=== PATIENT | female | born 1985 | race African-American/Black ===

== ENCOUNTER 2019-02-02 10:51 | Inpatient (IN) | payer OTHER, SELFPAY ==
--- NOTE | 2019-02-02 | PATH_ITS ---
[facility] Accession Number: [id number] . 01 Material submitted: . BILATERAL TUBAL SEGMENTS . 02 Diagnosis: Segments of Bilateral Fallopian Tubes (Sterilization Procedure): No significant pathologic change. V/02/04/2019 . 02 Electronically signed: . Anderson Long MD, Pathologist NPI- [id number] . 01 Gross description: . Received one formalin-filled container labeled with the patient's name and labeled bilateral tubes. The specimen consists of two pink-robertson non-fimbriated cylindrical shaped portions of tissue. The first measures 0.9 x 0.5 x 0.5 cm. The specimen is inked blue, trisected and entirely submitted in cassette A1. The second piece measures 0.9 x 0.5 x 0.5 cm. Inked blue, trisected and entirely submitted in cassette A2. ([facility] [place] [facility]:[id number]) /[facility] . 02 Pathologist provided ICD-10: Z30.2 . 02 CPT . 426143 Performed at: 01 [facility] [address] [place] [address], [place], [place] [id number] MD Derian Perez MD Phone: [phone] Performed at: 02 [facility] [address] [place], [place] [id number] MD Isha Chery MD Phone: [phone]
[2019-02-02 12:15] LABS: Add Manual Diff / Slide Review NO; Basophils Absolute Auto 0 /uL (0-100); Basophils Percent Auto 0.3 % (0-2); Eosinophils Absolute Auto 100 /uL (0-450); Eosinophils Percent Auto 0.8 % (2-4); Hematocrit 38.5 % (36-46); Lymphocytes Absolute Auto 1000 /uL (1100-4500); Lymphocytes Percent Auto 12.1 % (25-40); Mean Corpuscular HGB Conc 33.8 % (30-36); Mean Corpuscular Hemoglobin 29.2 PG (26-34); Mean Corpuscular Volume 86.3 fL (80-100); Monocytes Absolute Auto 600 /uL (0-900); Monocytes Percent Auto 7.3 % (3-14); Neutrophils Absolute Auto 6900 /uL (1500-7000); Neutrophils Percent Auto 79.5 % (50-75); Platelet Count 148 X10^3/uL (150-400); Red Blood Cell Count 4.46 X10^6/uL (4.0-5.2); Red Cell Distribution Width 14.6 % (11.6-14.8); White Blood Cell Count 8.6 X10^3/uL (4.5-11.0)
[2019-02-02] MEDS: LACTATED RINGERS 1,000 ML 999 ML IV ×2 (12:18→12:42)
[2019-02-02 12:33] VITALS: BP 124/84
[2019-02-02] MEDS: CEFAZOLIN 2 GM/100 ML FROZ.PIGGY IV (12:55)
--- NOTE | 2019-02-02 13:32 | SUR.OPER ---
Supine on Padded OR bed, head on pillow, safety belt at thigh, arms secured on padded arm boards at <90 degrees abduction. Bump under right buttock. Legs uncrossed with pillow under knees, gel pad to heels, tape over blanket to lower legs.
[2019-02-02 14:24] VITALS: BP 108/55; PULSE 81; RESP 12; TEMP 36.2; O2SAT 99
[2019-02-02 14:30] VITALS: BP 107/64; PULSE 76; RESP 14
[2019-02-02 14:34] VITALS: BP 100/55; PULSE 79; RESP 13; O2SAT 99
[2019-02-02 14:40] VITALS: BP 114/71; PULSE 82; RESP 12; O2SAT 100
[2019-02-02 14:44] VITALS: BP 111/74; PULSE 86; RESP 12; O2SAT 100
--- NOTE | 2019-02-02 14:46 | SUR.PHASEI ---
Report called to
--- NOTE | 2019-02-02 15:29 | SUR.PHASEI ---
Pt transferred to the center. Report to [place]. VS stable. Fundus at the U. Small to moderate amt of bleeding to oli-pad. Scant shadow drainage to [place]. Spinal at t8. IV saline locked.
[2019-02-02] MEDS: LACTATED RINGERS 1,000 ML 100 ML IV (15:30)
[2019-02-02] MEDS: OXYCODONE/ACETAMINOPHEN 5/325 TABLET 2 TAB PO (15:42)
[2019-02-02] MEDS: ONDANSETRON 4 MG/2 ML INJ IV (18:56)
[2019-02-02] MEDS: KETOROLAC 30 MG/ML VIAL IV (20:45)
[2019-02-03] MEDS: LACTATED RINGERS 1,000 ML 100 ML IV (01:41)
[2019-02-03] MEDS: KETOROLAC 30 MG/ML VIAL IV ×2 (03:00→09:03)
[2019-02-03 06:47] LABS: Add Manual Diff / Slide Review NO; Basophils Absolute Auto 0 /uL (0-100); Basophils Percent Auto 0.2 % (0-2); Eosinophils Absolute Auto 100 /uL (0-450); Eosinophils Percent Auto 1.1 % (2-4); Hematocrit 27.7 % (36-46); Hemoglobin 9.4 g/dL (12.0-16.0); Lymphocytes Absolute Auto 800 /uL (1100-4500); Lymphocytes Percent Auto 9.1 % (25-40); Mean Corpuscular HGB Conc 33.9 % (30-36); Mean Corpuscular Hemoglobin 29.5 PG (26-34); Mean Corpuscular Volume 87.1 fL (80-100); Monocytes Absolute Auto 900 /uL (0-900); Monocytes Percent Auto 10.5 % (3-14); Neutrophils Absolute Auto 6900 /uL (1500-7000); Neutrophils Percent Auto 79.1 % (50-75); Platelet Count 87 X10^3/uL (150-400); Red Blood Cell Count 3.18 X10^6/uL (4.0-5.2); Red Cell Distribution Width 14.8 % (11.6-14.8); White Blood Cell Count 8.7 X10^3/uL (4.5-11.0)
[2019-02-03] MEDS: PRENATAL VIT,CALC/IRON/FOLIC 1 TABLET 1 TAB PO (08:54)
[2019-02-03] MEDS: DOCUSATE 250 MG CAPSULE PO (08:54)
--- NOTE | 2019-02-03 12:45 | PM.PREOP ---
Pre-operative Note Interval Note History & Physical reviewed/Exam performed by Physician: Yes Changes to H&P: No
--- NOTE | 2019-02-03 12:52 | P.OP_ITS ---
Operative Date/Time/Diagnoses Date of procedure: 02/02/19 Time of procedure: 14:00 Pre-op diagnosis: Intrauterine at 39-,4/7 weeks gestation Previous section x2 Desires permanent sterilization Post-op diagnosis: same Procedure: Procedures Operation Date: 02/02/19 13:00 Actual Procedures Side Surgeon p Section with Bilateral Tubal Ligation Dayami Schmidt MD Indications: Intrauterine at 39-,4/7 weeks gestation Previous section x2 Desires permanent sterilization Surgeon: Dayami Schmidt Marketing Communications Specialist: Leo Kwong Anesthesia Type: Spinal Operative Notes Findings: Live female in the [facility] presentation Normal uterus, tubes, and ovaries Right paratubal cyst Closure Type: primary Specimen(s): left tube (Segment), right tube (Segment) and other (Placenta, cord bloods) Applied: catheter Estimated blood loss (mL): 500 Blood products transfused: none Procedure in detail: The patient was taken to the operating room where she was placed in the seated position. Spinal anesthesia with Duramorph was administered. The patient was then placed in the dorsal supine position with a leftward tilt. She was prepped and draped in the usual sterile fashion. A timeout was performed. After spinal analgesia was found to be adequate, the previous Pfannenstiel skin incisions were excised using an elliptical incision. The incision was then carried through to the underlying fascia. The fascia was nicked in the midline, and the incision extended bilaterally with the Stoddard scissors. The superior aspect of the fascial incision was grasped with a Fred clamps, elevated, and the underlying rectus muscles dissected off sharply and bluntly. Attention was then turned to the inferior aspect of this incision which in a similar fashion was grasped with a Fred clamps, elevated, and the underlying rectus muscles dissected off sharply and bluntly. The rectus muscles were in the midline. The peritoneum was identified, grasped between 2 hemostats, and entered sharply with the Metzenbaum scissors. This incision was extended superiorly and inferiorly with good visualization of the bladder. The bladder blade was inserted. The vesicouterine peritoneum was identified, grasped with the pickup, and entered sharply with the Metzenbaum scissors. This incision was extended bilaterally, and the bladder flap was created digitally. The lower uterine segment was found to be very thin. The bladder blade was reinserted. The lower uterine segment was incised in a transverse fashion with the scalpel. Upon entering the amniotic sac there was a large amount of moderate meconium-stained amniotic fluid. The infant's head was delivered with vacuum assistance. The nose and mouth were suctioned with bulb suction. The remainder of the body delivered without difficulty. The cord was double clamped and cut. The was handed off to waiting RN and RT. Cord bloods were obtained. The placenta was delivered manually. The uterus was cleared of all clots and debris. The uterine incision was repaired with #1 chromic in a running interlocking fashion, and a second layer the same suture was used for an imbricating layer. Hemostasis was achieved. The tubes and ovaries were examined and were found to be normal. The left tube was carried out to the fimbriated end with a Stephy. [address] to the distal end a 2 cm segment of tube was ligated x2 with 0 plain chromic. A 1 cm segment of tube was excised. The ends of the tube were cauterized for hemostasis. This was repeated on the patient's right tube. The gutters were cleared of all clots and debris. The bladder flap was reapproximated using 2-0 Vicryl in a running fashion. The parietal peritoneum was closed using 2-0 Vicryl in a running fashion. The fascia was reapproximated using 0 Vicryl in a running fashion. The subcutaneous layer was copiously irrigated with warm normal saline. 5 simple interrupted sutures of 3-0 Vicryl were placed to reapproximate the subcutaneous layer. The skin was closed with 4-0 undyed Vicryl in a subcuticular fashion. Steri-Strips were placed. An Aquacell dressing was placed. The uterus was expressed of a small amount of old blood. Sponge, lap, and instrument counts were correct x-2. The patient tolerated the procedure well, and was taken to PACU in stable condition. Complications: none Post-operative Condition: stable Disposition: PACU Plan for aftercare: To Center after recovery
--- NOTE | 2019-02-03 12:56 | P.PNOB_ITS ---
Subjective - OB Interval history: Patient is a 33-year-old 3 para 3 postop day # 1 status post repeat low-transverse section and bilateral tubal ligation. Patient's pain is well controlled with oral medications. is going well. Bleeding is small. She has voided without the catheter. Patient comments: no complaints, pain well controlled and tolerating diet baby status: doing well and nursing well [place] feeding status: exclusively breast feeding Date Patient Seen: 02/03/19 Time Patient Seen: 12:53 Exam Vital Signs (past 8 hours): Oxygen Delivery Method Room Air Narrative Exam Narrative: Generally: Patient walking around in room, no acute distress Lungs: Clear to auscultation bilaterally Cardiovascular: Regular rate and rhythm Abdomen: Good bowel sounds Fundus: Firm at U -1 Incision: Clean, dry, and intact with Aquacel dressing Extremities: Negative Homans, no edema Objective Labs Result Diagrams: 02/03/19 06:22 Labs: Laboratory Results - last 24 hr 02/02/19 02/03/19 11:50 06:22 WBC 8.7 RBC 3.18 L Hgb 9.4 L Hct 27.7 L MCV 87.1 MCH 29.5 MCHC 33.9 RDW 14.8 Plt Count 87 L Neut % (Auto) 79.1 H Lymph % (Auto) 9.1 L [place] % (Auto) 10.5 Eos % (Auto) 1.1 L Baso % (Auto) 0.2 Neut # (Auto) 6900 Lymph # (Auto) 800 L [place] # (Auto) 900 Eos # (Auto) 100 Baso # (Auto) 0 Blood Type A Positive Antibody Screen Negative Assessment & Plan (1) Status post repeat low transverse section: Status: Acute Current Visit: Yes (2) History of bilateral ligation of fallopian tubes: Status: Acute Assessment and plan: Assessment: Postop day # 1 status post repeat low-transverse section and bilateral tubal ligation Patient doing very well Plan: Anticipate discharge 02/04/2018 Current Visit: Yes Plan day: 1 plan OB: routine postop care Time Spent With Patient Total time spent is greater than 50% in coordination of care (as documented) at patient's floor/unit and/or counseling patient: 15-24 minutes
[2019-02-03] MEDS: IBUPROFEN 600 MG TABLET PO ×2 (14:00→20:03)
[2019-02-03] MEDS: OXYCODONE/ACETAMINOPHEN 5/325 TABLET 2 TAB PO ×2 (18:11→22:43)
[2019-02-04] MEDS: OXYCODONE/ACETAMINOPHEN 5/325 TABLET 2 TAB PO ×2 (02:47→08:11)
[2019-02-04] MEDS: IBUPROFEN 600 MG TABLET PO (02:47)
[2019-02-04] MEDS: PRENATAL VIT,CALC/IRON/FOLIC 1 TABLET 1 TAB PO (08:11)
[2019-02-04] MEDS: DOCUSATE 250 MG CAPSULE PO (08:11)
[2019-02-04 10:19] VITALS: BP 111/74; PULSE 86; RESP 12; TEMP 36.2
--- NOTE | 2019-02-07 13:23 | PM.OBDS.1 ---
Discharge Providers Date of admission: 02/02/19 10:51 Discharge Date: 02/04/19 Primary care physician: Andres Doan MD Consults: 02/02/19 14:35 Consult to Quality Control Projectionist Routine Comment: Discharge provider: Dayami Schmidt MD Summary Date Patient Seen: 02/04/19 Time Patient Seen: 10:30 Procedures: Repeat low-transverse section Bilateral tubal ligation Spinal anesthesia Hospital Course: Patient is a 33-year-old 3 para 3 who presented on 02/02/2019 for a scheduled repeat section and bilateral tubal ligation. She underwent these procedures without complication. Her postoperative course was unremarkable. She was able to void without the catheter on postop day # 1. She had no nausea or vomiting. Pain was well controlled with oral medications. She was tolerating a diet and ambulating without assistance. Peripartum Data Infant Delivery Method: Section (Repeat and bilateral tubal ligation) Laceration description: None Episiotomy description: None Procedures: Repeat low-transverse section Bilateral tubal ligation Spinal anesthesia complications: none Discharge Diagnosis (1) Status post repeat low transverse section: Status: Acute (2) History of bilateral ligation of fallopian tubes: Status: Acute Status at Discharge Cognitive/behavioral status at discharge: oriented Functional status at discharge: independent ambulation Overall status at discharge: patient is progressing back to baseline Time Spent with Patient Total time spent providing and/or coordinating discharge services: Less than 30 minutes Specific discharge activities: See discharge notes Objective Labs Result Diagrams: 02/03/19 06:22 Discharge Plan Discharge Plan Patient Disposition: Home Discharge comment: Call with fever, chills, redness or drainage around the incision or bleeding vaginally more than a pad in an hour Ibuprofen 600mg every 6 hours as needed Discharge Med Rec/Prescriptions Prescriptions: New oxycodone-acetaminophen [Percocet] 5-325 mg tablet 1 tab PO Q4-6H PRN (Reason: pain) Qty: 30 RF: 0 Continued PNV no.[id number] acid 28 mg iron- 800 mcg tablet 1 tab PO DAILY RF: 0 Follow up/Referrals: Dayami Schmidt MD [Physician] - 1 Week (Appointment with Dr. Schmidt on 02/08/19 @0945 for Aquacell dressing removal) Provider Discharge Instructions Diet: Diet as Tolerated Activity: No heavy lifting Skin/Wound/Dressing Care Report to your healthcare provider any signs of infection, such as:: chills, fever, increased pain, unusual drainage and unusual redness Dressing: Do not remove. Will be taken off in the office next Thursday Visit Report/Discharge Packet Instructions: DI for Stand Alone Forms: Discharge: Care Visit Report Forms: Stroke Signs & Symptoms Discharge Data Primary Care Provider: Andres Doan Attending Provider: Dayami Schmidt Admit Date/Time: 02/02/19 10:51 Discharges patient from system. Discharge Date/Time: 02/04/19 11:45
== END 2019-02-04 11:45 | disposition home or self-care (01) | DRG 785 ==
PROVIDERS: Admitting Provider Obstetrics & Gynecology; PCP Family Medicine; Visit Provider Obstetrics & Gynecology
PROC: 10D00Z1 Extraction of Products of Conception, Low, Open Approach (ICD-10-PCS; CPT 59514; principal; 2019-02-02 13:00)
DX: O34.219 Maternal care for unspecified type scar from previous cesarean delivery (principal); Z3A.39 39 weeks gestation of pregnancy; Z37.0 Single live birth; Z30.2 Encounter for sterilization
CPT/HCPCS: 36415; 59050; 59514; 59515; 85025; 86850; 86900; 86901; 96360; J0690; J1885; J2274; J2405; J2590; J3010